=== PATIENT | male | born 1990 | race Two or more races ===

== ENCOUNTER 2018-07-31 20:40 | Inpatient (IN) | payer OTHER ==
[~2018-07-31] VITALS: Ht 180.3 cm; Wt 86.2 kg
[2018-08-03] MEDS ORDERED: ULTRACET PO (08:14)
[2018-08-03] MEDS ORDERED: KEFLEX500 MG PO (08:14)
== END 2018-08-03 09:49 | disposition home or self-care (01) | DRG 343 ==
LOC: ER 20:40 → SURH 08-01 06:00 → SEC-K 08-01 06:00 → O/R 08-01 11:01 → SURG 08-01 12:03 → SURH 08-02 01:47
PROVIDERS: ADMIT Surgery
PROC: 0DTJ0ZZ Resection of Appendix, Open Approach (ICD-10-PCS; principal; 2018-08-01 09:00)
DX: K35.890 Other acute appendicitis without perforation or gangrene (principal); B86 Scabies

== ENCOUNTER 2024-03-01 08:27 | Emergency (ER) | payer OTHER ==
[~2024-03-01] VITALS: Ht 180.3 cm; Wt 86.2 kg
[~2024-03-01 08:27] MED LIST: KEFLEX500 MG PO; ULTRACET PO
[2024-03-01] MEDS ORDERED: KETOROLAC TROMETHAMINE 60 MG VIAL IM ONE ×2 (09:30→09:33)
== END 2024-03-01 11:03 ==
LOC: ER 08:28
DX: R53.81 Other malaise (principal); M94.0 Chondrocostal junction syndrome [Tietze]; Z88.2 Allergy status to sulfonamides